=== PATIENT | male | born 1975 | race Caucasian/White ===

== ENCOUNTER 2024-09-15 14:21 | Outpatient (AMB) | payer MEDICAID, SELFPAY ==
--- NOTE | 2024-09-15 14:58 | PD.ORTHCLVIS ---
Vital signs 09/15/24 14:59 Height 1.93 m Height Method Stated Weight 137.042 kg Weight Measurement Method Standing Scale BMI 36.8 BP 158/81 H Blood Pressure Source Automatic Cuff Blood Pressure Location Right Upper Arm Position Sitting Respiration 18 Pulse 72 Pulse Source Monitor Temp 96.2 F L Temp Source Temporal Artery Scan Pulse Oximetry (%) 96 Oxygen Delivery Method Room Air Med/Allergies Allergies & Medications Allergies No Known Allergies Allergy (Verified 09/15/24 15:00) Medication Reconciliation ibuprofen 200 mg tablet 200 mg PO Q6H PRN 06/19/24 [History Confirmed 09/15/24] metformin 500 mg tablet 500 mg PO QDAY 06/19/24 [History Confirmed 09/15/24] trimethoprim 100 mg tablet 100 mg PO QDAY 06/19/24 [History Confirmed 09/15/24] Subjective Visit Visit for: follow up visit Immunization / Flu Flu Vaccine in the Last 12 Months: No Flu Vaccine Exclusion Criteria: No Exclusion Criteria History of Present Illness Chief complaint: left knee pain Patient is a pleasant 48-year-old male who recently had a right total knee replacement. He has significant left knee pain and left knee arthritis. He reports the pain, terrible right now. He is doing well with his right total knee replacement. We have treated him significantly with conservative treatment. He would like to hold off on surgery for now. We will plan for surgery in January Pain Pain level (0-10): 4 Pain duration: COMES AND GOES Pain location: inside (medial) Pain quality: aching Associated signs & symptoms: none Ambulatory data Ambulatory device: none Treatments Improvement with previous injections: No Improvement with PT: No Improvement with NSAIDS: no Review of Systems Review of Systems: All systems negative unless otherwise noted in HPI. Exam Exam Patient is in no acute distress and is cooperative with the examination today. Breathing is nonlabored. Patient has a normal mood and affect. Bilateral extremities were evaluated and demonstrates sensation intact to light touch. Palpable pedal pulses are present. No significant edema is present. Bilateral hips were examined. The patient has no pain with log roll of the hips. Internal rotation to 30 degrees and external rotation to 30 degrees is painless. Negative FADIR. Right knee was examined today. Right knee incision is clean dry and intact Left knee was examined today. The left knee is in [varus] alignment. Range of motion from [0-115] degrees. Knee is stable to varus and valgus as well as AP translation with <5mm. Patient has a [negative] McMurrays. There is [no] pain with patellofemoral compression and [no] crepitus noted. The knee is [tender] to palpation [medially]. X-rays demonstrate a cemented right total knee replacement. He has severe arthritis in his left knee as well. Assessment and Plan Problem List (1) Arthritis of knee, left: Status: Acute Plan: Patient is a 48-year-old male with severe left knee arthritis. He had a recent right total knee replacement 5 months ago. He is working on some social issues right now before surgery. He is doing reasonably well in his right knee. His left knee demonstrates significant degenerative changes. He would like to hold off on an injection at this time. He would like to get surgery in about 6 months which is reasonable as is failed cortisone injections, anti-inflammatories, and physical therapy Office Procedures GNS Level of Care Nursing/Assessment Patient Status: Established Patient Nursing Assessment/Reassesment: Medication Reconciliation, Update PMH in EMR and Vital Signs Coordination of Care: Complex Care and Chronic Disease 1-5, Education Complex Pt/Fam, Consent,records obtained, informed consent and Staff clarify orders Established Patient Charge Established Patient Point Assignment: 90 Established Patient Point Charge: EP Level 3 (80-115) Past Medical History Past Medical History Have you ever been diagnosed with any of the following: Respiratory Problems Smoking: No Smoking Exposure: No
[2024-09-15 14:59] VITALS: BP 158/81; PULSE 72; RESP 18; TEMP 35.7; O2SAT 96; BMI 36.8
== END 2024-09-15 15:46 | disposition home or self-care (01) ==
LOC: HODSRG 14:21
PROVIDERS: Supervising Provider Orthopaedic Surgery Adult Reconstructive Orthopaedic Surgery; Visit Provider Orthopaedic Surgery Adult Reconstructive Orthopaedic Surgery
DX: M17.12 Unilateral primary osteoarthritis, left knee (principal); M25.562 Pain in left knee; Z96.651 Presence of right artificial knee joint
CPT/HCPCS: 99213; G0463

== ENCOUNTER 2025-01-22 13:34 | Outpatient (AMB) | payer MEDICAID, SELFPAY ==
[2025-01-22 13:52] VITALS: BP 133/76; PULSE 72; RESP 18; TEMP 36.4; O2SAT 96; BMI 37.8
--- NOTE | 2025-01-22 13:52 | PD.ORTHCLVIS ---
Vital signs 01/22/25 13:52 Height 1.93 m Height Method Stated Weight 140.727 kg Weight Measurement Method Standing Scale BMI 37.8 BP 133/76 H Blood Pressure Source Automatic Cuff Blood Pressure Location Left Upper Arm Position Sitting Respiration 18 Pulse 72 Pulse Source Monitor Temp 97.6 F Temp Source Temporal Artery Scan Pulse Oximetry (%) 96 Oxygen Delivery Method Room Air Med/Allergies Allergies & Medications Allergies No Known Allergies Allergy (Verified 01/22/25 13:53) Medication Reconciliation ibuprofen 200 mg tablet 200 mg PO Q6H PRN 06/19/24 [History Confirmed 01/22/25] metformin 500 mg tablet 500 mg PO QDAY 06/19/24 [History Confirmed 01/22/25] trimethoprim 100 mg tablet 100 mg PO QDAY 06/19/24 [History Confirmed 01/22/25] Exam Exam Patient is in no acute distress and is cooperative with the examination today. Breathing is nonlabored. Patient has a normal mood and affect. Bilateral extremities were evaluated and demonstrates sensation intact to light touch. Palpable pedal pulses are present. No significant edema is present. Bilateral hips were examined. The patient has no pain with log roll of the hips. Internal rotation to 30 degrees and external rotation to 30 degrees is painless. Negative FADIR. Right knee was examined today. Right knee incision is clean dry and intact Left knee was examined today. The left knee is in [varus] alignment. Range of motion from [0-115] degrees. Knee is stable to varus and valgus as well as AP translation with <5mm. Patient has a [negative] McMurrays. There is [no] pain with patellofemoral compression and [no] crepitus noted. The knee is [tender] to palpation [medially]. X-rays demonstrate a cemented right total knee replacement. He has severe arthritis in his left knee as well. Assessment and Plan Problem List (1) Arthritis of knee, left: Status: Acute Plan: Patient is a 48-year-old male with severe left knee arthritis. He had a recent right total knee replacement 8 months ago. We discussed with him that we can proceed with a total knee replacement when he is ready. Right now he is currently working on some ongoing medical issues with his father and cannot get surgery at this time. I told him to contact us when he is ready Office Procedures GNS Level of Care Nursing/Assessment Patient Status: Established Patient Nursing Assessment/Reassesment: Medication Reconciliation, Update PMH in EMR and Vital Signs Coordination of Care: Complex Care and Chronic Disease 1-5, Education Complex Pt/Fam, Consent,records obtained, informed consent, Results/Orders obtained and Staff clarify orders Established Patient Charge Established Patient Point Assignment: 95 Established Patient Point Charge: EP Level 3 (80-115) MA Intake Visit Data Collection New Patient or Established: Established Patient (seen at [facility] within 3 years) Reason for Visit:: F/U KNEE PAIN Radiology Technician Required: No PCP or OBGYN visit in last 3 months: Yes Hx Now: No Do You Feel Safe at Home: Yes Authorities Contacted: N/A Questionairres Past Medical History Past Medical History Have you ever been diagnosed with any of the following: Respiratory Problems Smoking: No Smoking Exposure: No Subjective Visit Visit for: follow up visit and knee (BILATERAL) Immunization / Flu Flu Vaccine in the Last 12 Months: No Flu Vaccine Exclusion Criteria: Refused by Patient History of Present Illness Chief complaint: left knee Patient is a 49 yo male With significant left knee arthritis. He has significant left knee pain and we failed conservative treatment occluding injections. He reports that right now it is not a good time to get surgery because he has to take his dad who is ongoing medical issues right now that needs immediate attention. We discussed with him that we can do a total knee replacement when he is ready Personal History Red flag PMH: none Pain Pain level (0-10): 4 Pain location: inside (medial) and outside (lateral) Pain quality: aching Pain timing: night, increases with activity and stairs Ambulatory data Ambulatory device: none Treatments Number of previous injections: 1 Improvement with previous injections: Yes Improvement with PT: Yes Improvement with NSAIDS: n/a Review of Systems Review of Systems: All systems negative unless otherwise noted in HPI.
== END 2025-01-22 14:08 | disposition home or self-care (01) ==
LOC: HODSRG 13:34
PROVIDERS: Supervising Provider Orthopaedic Surgery Adult Reconstructive Orthopaedic Surgery; Visit Provider Orthopaedic Surgery Adult Reconstructive Orthopaedic Surgery
DX: M17.12 Unilateral primary osteoarthritis, left knee (principal); Z96.651 Presence of right artificial knee joint
CPT/HCPCS: 99213; G0463